=== PATIENT | female | born 1980 | race African-American/Black ===

== ENCOUNTER 2019-08-14 14:11 | Emergency (ER) | payer MEDICAID ==
[~2019-08-14] VITALS: Ht 167.6 cm; Wt 90.0 kg
[2019-08-14] MEDS ORDERED: BACITRACIN ZINC OINT UDPKT TOP ONE (15:30)
[2019-08-14] MEDS ORDERED: LIDOCAINE HCL/PF 1% 10 MG/ML 5ML VIAL IJ ONE (15:30)
[2019-08-14 17:07] VITALS: BP 120/50
== END 2019-08-14 17:09 | disposition home or self-care (01) ==
LOC: ER 14:11
DX: S61.210A Laceration without foreign body of right index finger without damage to nail, initial encounter (principal); F17.200 Nicotine dependence, unspecified, uncomplicated; Z98.890 Other specified postprocedural states; W26.0XXA Contact with knife, initial encounter; Y93.89 Activity, other specified; Y92.89 Other specified places as the place of occurrence of the external cause; Y99.8 Other external cause status
CPT/HCPCS: 99283; J3490

== ENCOUNTER 2019-09-01 22:34 | Emergency (ER) | payer MEDICAID ==
[~2019-09-01] VITALS: Ht 162.6 cm; Wt 89.0 kg
[2019-09-02 00:57] LABS: BASOPHILS % 0.4 % (0.0-2.0); EOSINOPHILS % 2.8 % (0.0-5.0); HEMATOCRIT. 35.2 % (36.0-48.0); HEMOGLOBIN. 12.2 g/dL (12.0-16.0); LYMPHOCYTES % 34.4 % (20.0-50.0); MEAN CORPUSCULAR HEMOGLOBIN 33.6 pg (28.0-32.0); MEAN CORPUSCULAR VOLUME 96.9 fL (81.0-99.0); MONOCYTES % 3.7 % (2.0-8.0); NEUTROPHILS % 58.7 % (40.0-76.0); PLATELET 253 x1000/uL (130-400); RED BLOOD CELL COUNT 3.64 mill/uL (4.2-5.4); RED CELL DISTRIBUTION WIDTH 13.5 % (11.6-14.6)
[2019-09-02 01:01] LABS: CHLORIDE 106 mEq/L (98-107)
[2019-09-02 02:00] VITALS: BP 117/66
== END 2019-09-02 07:20 | disposition home or self-care (01) ==
LOC: ER 09-02 07:20
DX: O26.891 Other specified pregnancy related conditions, first trimester (principal); R42 Dizziness and giddiness; F17.200 Nicotine dependence, unspecified, uncomplicated; Z98.890 Other specified postprocedural states; Z3A.01 Less than 8 weeks gestation of pregnancy
CPT/HCPCS: 36415; 82962; 84443; 84484; 93005; 99284